=== PATIENT | female | born 1950 | race Caucasian/White ===

== ENCOUNTER 2016-08-14 11:22 | Observation (INO) | payer OTHER ==
[2016-08-14] MEDS ORDERED: NS 1,000 ML IV ONE (12:21)
--- NOTE | 2016-08-14 12:24 | EDPHY ---
H & P HPI/ROS: CHIEF COMPLAINT: Epigastric pain, vomiting HISTORY OF PRESENT ILLNESS: 65-year-old female with a history of myasthenia gravis presents with epigastric pain and vomiting. 3 nights ago she was awakened by epigastric pain which radiated to her back. The pain was waxing and waning and severe. Associated with severe nausea. Self-induced vomiting with some relief. Since then she has had intermittent episodes of similar discomfort. Associated with chills, no known fever. Onset of right lower quadrant pain last night at 7:00 p.m.. The pain has been persistent and severe since then. History of similar discomfort 10 years ago, without definite diagnosis. REVIEW OF SYSTEMS: Constitutional: No fever Eyes: No visual changes ENT: No sore throat Respiratory: No cough, no shortness of breath Cardiac: No chest pain Genitourinary: No hematuria, no dysuria Musculoskeletal: No leg pain or swelling Skin: No rash Neurological: No headache, no weakness Psychiatric: No depression Past Medical/Surgical History: Myasthenia gravis, stable, not on prednisone for over 10 years Thymectomy Social History: No recent alcohol Smoking Status: Never smoked Physical Exam: General Appearance: Alert, pleasant Eyes: Pupils equal and round, no conjunctival pallor or injection ENT, Mouth: Mucous membranes moist Neck: Normal inspection Respiratory: Lungs are clear to auscultation Cardiovascular: Regular rate and rhythm Gastrointestinal: Abdomen is soft, mild right upper quadrant tenderness Back: Normal inspection, No CVA tenderness Neurological: A&O, nonfocal, normal gait Skin: Warm and dry, no rash Extremities: Nontender, no pedal edema Psychiatric: Mood and affect normal Constitutional: Initial Vital Signs Temperature (C) 37.1 C 08/14/16 11:23 Heart Rate 74 08/14/16 11:23 Respiratory Rate 18 08/14/16 11:23 Blood Pressure 153/93 H 08/14/16 11:23 O2 Sat (%) 95 08/14/16 11:23 O2 Delivery Mode Room Air Allergies/Adverse Reactions: Sulfa (Sulfonamide Antibiotics) [Sulfa(Sulfonamide Antibiotics)] Allergy ( Verified 12/14/11 15:06) Home Medications: Medication Instructions Recorded Atorvastatin Calcium [Lipitor 10 10 mg PO DAILY 08/14/16 mg (*)] Levothyroxine [Synthroid 137 mcg 137 mcg PO DAILY06 08/14/16 (*)] Lisinopril [Zestril 5 mg (*)] 5 mg PO DAILY 08/14/16 PARoxetine HCL [Paxil] 40 mg PO DAILY 08/14/16 Medical Decision Making - Diagnostics Imaging: Right upper quadrant ultrasound read Dr. Marito Branch reveals multiple gallstones no evidence of cholecystitis or bile duct dilatation. ED Course/Re-evaluation: Ultrasound results discussed with the patient. She has persistent pain after receiving IV Dilaudid. Dr. Lujan consulted and saw the patient in the emergency department. Plan for admission and cholecystectomy this evening. Differential Diagnosis: Differential diagnosis includes though it is not limited to appendicitis, cholecystitis, diverticulitis, pyelonephritis, bowel perforation, small bowel obstruction. - Data Points Laboratory Results: Laboratory Results 08/14/16 11:50 08/14/16 11:50 08/14/16 11:50 WBC 12.81 H 10^3/uL (3.80-9.50) RBC 4.62 10^6/uL (4.18-5.33) Hgb 14.6 g/dL (12.6-16.3) Hct 42.0 % (38.0-47.0) MCV 90.9 fL (81.5-99.8) MCH 31.6 pg (27.9-34.1) MCHC 34.8 g/dL (32.4-36.7) RDW 12.1 % (11.5-15.2) Plt Count 323 10^3/uL (150-400) MPV 9.0 fL (8.7-11.7) Neut % (Auto) 78.7 H % (39.3-74.2) Lymph % (Auto) 11.9 L % (15.0-45.0) [place] % (Auto) 8.5 % (4.5-13.0) Eos % (Auto) 0.5 L % (0.6-7.6) Baso % (Auto) 0.2 L % (0.3-1.7) Nucleat RBC Rel Count 0.0 % (0.0-0.2) Absolute Neuts (auto) 10.08 H 10^3/uL (1.70-6.50) Absolute Lymphs (auto) 1.52 10^3/uL (1.00-3.00) Absolute Monos (auto) 1.09 H 10^3/uL (0.30-0.80) Absolute Eos (auto) 0.06 10^3/uL (0.03-0.40) Absolute Basos (auto) 0.03 10^3/uL (0.02-0.10) Absolute Nucleated RBC 0.00 10^3/uL (0-0.01) Immature Gran % 0.2 % (0.0-1.1) Immature Gran # 0.03 10^3/uL (0.00-0.10) Sodium 140 mEq/L (134-144) Potassium 3.9 mEq/L (3.5-5.2) Chloride 104 mEq/L (97-110) Carbon Dioxide 27 mEq/l (22-31) Anion Gap 9 mEq/L (8-16) BUN 9 mg/dL (7-23) Creatinine 0.7 mg/dL (0.6-1.0) Estimated GFR > 60 Glucose 109 H mg/dL (70-100) Calcium 9.0 mg/dL (8.5-10.4) Total Bilirubin 1.4 mg/dL (0.1-1.4) Conjugated Bilirubin 0.3 mg/dL (0.0-0.5) Unconjugated Bilirubin 1.1 mg/dL (0.0-1.1) AST 20 IU/L (14-46) ALT 34 IU/L (9-52) Alkaline Phosphatase 125 IU/L (38-126) Total Protein 6.9 g/dL (6.3-8.2) Albumin 3.7 g/dL (3.5-5.0) Lipase 94.0 IU/L (23-300) Medications Given: Discontinued Medications Hydromorphone HCl (Dilaudid) 0.5 mg IVP EDNOW ONE Stop: 08/14/16 13:15 Last Admin: 08/14/16 13:21 Dose: 0.5 mg Sodium Chloride (Ns) 1,000 mls @ 0 mls/hr IV ONCE ONE PRN Reason: Wide Open Stop: 08/14/16 12:22 Last Admin: 08/14/16 12:44 Dose: 1,000 mls Ketorolac Tromethamine (Toradol) 30 mg IVP EDNOW ONE Stop: 08/14/16 13:29 Last Admin: 08/14/16 13:53 Dose: 30 mg Departure - Departure Disposition: [facility] Inpatient Acute Clinical Impression: Biliary colic Condition: Good
[2016-08-14 12:26] LABS: % IMMATURE GRANULYOCYTES 0.2 % (0.0-1.1); ABSOLUTE IMMATURE GRANULOCYTES 0.03 10^3/uL (0.00-0.10); ADD DIFF? NO; ADD MORPH? NO; ADD SCAN? NO; ATYPICAL LYMPHOCYTE FLAG 0 (0-99); FRAGMENT RBC FLAG 0 (0-99); HEMOGLOBIN 14.6 g/dL (12.6-16.3); LEFT SHIFT FLG 0 (0-99); LIPEMIA HEMOLYSIS FLAG 90 (0-99); MEAN CELL HEMOGLOBIN 31.6 pg (27.9-34.1); MEAN CELL HEMOGLOBIN CONCENTR. 34.8 g/dL (32.4-36.7); MEAN CELL VOLUME 90.9 fL (81.5-99.8); PLATELET CLUMPS FLAG 10 (0-99); PLATELET COUNT 323 10^3/uL (150-400); RED BLOOD CELL COUNT 4.62 10^6/uL (4.18-5.33); RED CELL DISTRIBUTION WIDTH 12.1 % (11.5-15.2)
[2016-08-14 12:33] LABS: ALANINE AMINOTRANSFERASE 34 IU/L (9-52); ALBUMIN 3.7 g/dL (3.5-5.0); ALKALINE PHOSPHATASE 125 IU/L (38-126); ANION GAP 9 mEq/L (8-16); ASPARTATE AMINOTRANSFERASE 20 IU/L (14-46); BILIRUBIN,TOTAL 1.4 mg/dL (0.1-1.4); BILIRUBIN-CONJUGATED 0.3 mg/dL (0.0-0.5); BILIRUBIN-UNCONJUGATED 1.1 mg/dL (0.0-1.1); CARBON DIOXIDE 27 mEq/l (22-31); CHLORIDE 104 mEq/L (97-110); CREATININE 0.7 mg/dL (0.6-1.0); GLOMERULAR FILTRATION RATE > 60; GLUCOSE 109 mg/dL (70-100); POTASSIUM 3.9 mEq/L (3.5-5.2); SODIUM 140 mEq/L (134-144); TOTAL PROTEIN 6.9 g/dL (6.3-8.2)
--- NOTE | 2016-08-14 12:43 | CPEKG ---
Heart Rate: 63 RR Interval: 952 P-R Interval: 128 QRSD Interval: 100 QT Interval: 440 QTC Interval: 451 P Orange: 55 QRS Orange: -23 T Wave Orange: 84 EKG Severity - ABNORMAL ECG - EKG Impression: SINUS RHYTHM EKG Impression: BORDERLINE LEFT AXIS DEVIATION EKG Impression: PROBABLE POSTERIOR INFARCT Electronically Signed By: Jyoti Luke 14-Aug-2016 17:30:12
[2016-08-14] MEDS ORDERED: HYDROmorphONE/DILAUDID 1 MG/ML SYR ONE (12:57)
[2016-08-14] MEDS ORDERED: HYDROmorphONE/DILAUDID 1 MG/ML SYR IVP ONE (13:14)
[2016-08-14] MEDS ORDERED: KETOROLAC 30 MG/1 ML SDV IVP ONE (13:28)
--- NOTE | 2016-08-14 13:31 | US ---
Sonography Limited to the Right Upper Quadrant of the Abdomen CLINICAL HISTORY: 65-year-old female with right upper quadrant pain for 4 days. Rule out cholelithias is. TECHNIQUE: A curvilinear 5 MHz transducer was used to sonographically evaluate the right upper quadra nt of the abdomen. Color Doppler was used. COMPARISON STUDY: None. FINDINGS: The pancreatic contour is normal, with the caveat that the pancreatic tail is partially obs cured by overlying bowel gas.. The abdominal aorta is normal in size, and tapers normally. The visual ized IVC is normal in caliber. The hepatic vein trifurcation is normal. The main portal vein is paten t. The liver is normal in size, measuring 14.1 cm along the right midaxillary line. There is no intra or extrahepatic bile duct dilatation. The common bile duct measures 5.1 cm. The gallbladder is moder ately distended, and contains some mobile echogenic dependent foci with associated acoustic shadowing , consistent with gallstones. There is no sludge, polyp, wall thickening, pericholecystic fluid, or s onographic Corrales sign. The gallbladder wall thickness is 1.5 mm. The right kidney is normal in size, shape, and contour, with a normal renal cortical thickness, and no focal renal mass or hydronephrosi s, and measures 10.1 x 5.6 x 4.5 cm. There is no ascites or right pleural effusion. IMPRESSION: Uncomplicated cholelithiasis. Results were conveyed to Dr. Pauline Luke. A test result has been communicated to a licensed care provider and documented in the [email or web address] Critical Result system on 08/14/2016 13:25, Message ID [id number].
[2016-08-14] MEDS ORDERED: ceFAZolin 2 GM/DEXTROSE 100 ML IV ONE (14:37)
[2016-08-14] MEDS ORDERED: LR 1,000 ML IV SCH (15:00)
[2016-08-14] MEDS ORDERED: SKIN ADHESIVE (DERMABOND) 1 EACH TP ONE (15:05)
[2016-08-14] MEDS ORDERED: BUPIVACAINE/EPI 0.25% 30 ML SDV ONE (15:05)
[2016-08-14] MEDS ORDERED: MIDAZOLAM 2 MG/2 ML VIAL ONE (15:09)
[2016-08-14] MEDS ORDERED: PROPOFOL/EMULSION 500 MG/50 ML BOTTLE IV ONE (15:22)
[2016-08-14] MEDS ORDERED: fentaNYL 100 MCG/2 ML INJ ONE (15:22)
[2016-08-14] MEDS ORDERED: LIDOCAINE 2% 100 MG/5 ML SYR IVP ONE (15:23)
[2016-08-14] MEDS ORDERED: LIDOCAINE HCL 160 MG/4 ML LTA KIT TP ONE (15:25)
[2016-08-14] MEDS ORDERED: ROCURONIUM 50 MG/5 ML VIAL ONE (15:25)
--- NOTE | 2016-08-14 15:27 | GHP ---
[f rep st] PREOP HISTORY AND PHYSICAL DATE OF ADMISSION: 08/14/2016 CHIEF COMPLAINT: Abdominal pain. HISTORY OF PRESENT ILLNESS: This is an otherwise healthy 65-year-old female who presents to the [facility] department with 48 hours now of acute right upper quadrant pain with radiation to the back asso ciated with nausea and vomiting. The patient states that she had a similar episode like this 10 year s ago. She did come to the hospital at that point in time and, at that point in time, the pain was a ttributed to cardiac in nature. For the past 10 years, she has had no issues. She continues to eat fa tty foods and enjoys spicy [place] food and enjoyed this on Wednesday, after which she began to have ac [place] sharp right upper quadrant pain, 8/10 in intensity with radiation to the back. This pain persist ed over the last 48 hours. It got a little bit better Wednesday night and got worse which p rompted her presentation here today. It is associated with nausea and vomiting. The vomiting reliev ed the pain only minimally so, for a short period of time. She denies having fevers and chills. End orses persistent right upper quadrant pain and otherwise feels well. PAST MEDICAL HISTORY: Myasthenia gravis. PAST SURGICAL HISTORY: Laparoscopic tubal ligation and thymectomy, both performed remotely. REVIEW OF SYSTEMS: A full 10-point review was performed and, unless explicitly stated, is otherwise negative. CURRENT MEDICATIONS: None. ALLERGIES: Sulfa. PHYSICAL EXAMINATION: VITAL SIGNS: Temperature 36.7, blood pressure 136/70, heart rate 61, and she is 91% on room air. GENERAL: She is alert and oriented, in no acute distress. CV: She has a regul ar rate and rhythm. LUNGS: Clear to auscultation bilaterally. ABDOMEN: Obese. She is tender to pa lpation in the right upper quadrant with a positive Corrales sign. No rebound tenderness appreciated. Surgical scars consistent with previous surgical history. LABORATORY DATA: Leukocytosis to 12,000 with left shift. Chemistries are unremarkable with normal L FTs. Ultrasound shows cholelithiasis with a normal gallbladder wall, normal duct size and architectur e without any pericholecystic fluid. ASSESSMENT AND PLAN: A 65-year-old female with acute right upper quadrant pain consistent with anurag cystitis. I discussed the patient's diagnosis with her today. Given the fact that the pain has been u nrelenting and is associated with significant clinical exam and leukocytosis, I have recommended lapa roscopic cholecystectomy. After discussing the risks, benefits, and alternatives, she wishes to proc eed. She has been n.p.o. since early this morning. We will plan for OR as time permits. /[id number]/MODL
[2016-08-14] MEDS ORDERED: DEXAMETHASONE 4 MG/ML VIAL ONE (15:53)
[2016-08-14] MEDS ORDERED: ONDANSETRON 4 MG/2 ML VIAL ONE (15:53)
[2016-08-14] MEDS ORDERED: SUGAMMADEX SODIUM 200 MG/2 ML VIAL IVP ONE (16:04)
[2016-08-14] MEDS ORDERED: ONDANSETRON 4 MG/2 ML VIAL IVP PRN (16:26)
[2016-08-14] MEDS ORDERED: HYDROmorphONE/DILAUDID 1 MG/ML SYR IVP PRN (16:26)
--- NOTE | 2016-08-14 16:28 | POSTOPPROG ---
Post Op Note Date of Operation: 08/14/16 Surgeon: Luke Lujan Sales And Marketing Representative: MAKEDA Calero Anesthesiologist: Oswald Anesthesia: GET(General Endotracheal) Pre-op Diagnosis: Cholecystitis Post-op Diagnosis: acute on chronic cholecystitis Procedure: Lap anurag Findings: Adhesions, hydropic bile Inf/Abcess present in the surg proc area at time of surgery?: No EBL: Minimal Specimen(s): GAllbladder
[2016-08-14] MEDS ORDERED: D5W 1/2 NS W/ 20 KCl/L 1,000 ML IV SCH (16:30)
[2016-08-14] MEDS: OXYCODONE/APAP 5/325 TAB PO PRN (19:32)
--- NOTE | 2016-08-14 20:08 | GOP ---
[f rep st] OPERATIVE REPORT DATE OF OPERATION: 08/14/2016 SURGEON: Luke Lujan MD COMPLIANCE AUDITOR: Baljeet Calero PA-C ANESTHESIA: General endotracheal. ANESTHESIOLOGIST: Jose Akers MD PREOPERATIVE DIAGNOSIS: Acute cholecystitis. POSTOPERATIVE DIAGNOSIS: [id number] cholecystitis with hydrops of the gallbladder. PROCEDURE PERFORMED: Laparoscopic cholecystectomy. FINDINGS: The gallbladder was covered with many dense peritoneal adhesions and distended. The bile was aspirated and noted to be clear, consistent with hydrops. A critical view was obtained. SPECIMENS: Gallbladder. ESTIMATED BLOOD LOSS: 10 cc. DESCRIPTION OF PROCEDURE: The patient was greeted in the preoperative suite. Once again, risks, dedra efits, and alternatives were discussed at length. The consent was signed. She was then brought back to the operative suite, placed on the OR table in the supine position. After all anesthesia machine s, including SCDs, were on and functioning, a World Health Organization time-out was performed with p atient participation, ending with all in agreement. Antibiotics were given on-call to the operating room. General endotracheal anesthesia was then induced without incident. The patient's abdomen was then widely prepped and draped in typical sterile fashion. I entered the abdomen using the [place] ne edle in the left upper quadrant, where I insufflated with CO2 to 15 mmHg which was well tolerated by the patient. I then entered the abdomen via the umbilicus using a 10 mm Visiport. Once successfully in the abdomen, I placed 3 additional 5 mm trocars, 1 in the subxiphoid, 2 in the right upper quadra nt, all under direct visualization. Once this was done, I identified the gallbladder. There were ma ny omental and peritoneal adhesions to it. These were taken down with a combination of gentle dissec tion and electrocautery. Once these were done, the gallbladder was identified and noted to be densel y swollen. In order to facilitate retraction, it was aspirated and the bile was noted to be clear. Once aspirated, the gallbladder was then retracted superiorly. The infundibulum was grasped using a combination of blunt dissection and electrocautery. A critical view was obtained, identifying only 2 structures leading to the gallbladder. The duct was 1st clipped, 2 on the proximal, 1 on the distal , and then cut. The artery was identified posterior to this. In the same fashion, it was clipped an d cut. The gallbladder was then taken off the bed of the liver using electrocautery. Once done, it was placed in an EndoCatch bag and removed. Hemostasis was achieved in the liver bed using a combina tion of electrocautery and David hemostatic agent. Hemostasis was noted to be excellent after appli cation of this. Local anesthesia was then infiltrated into all port sites which were then removed un kartik direct visualization. Pneumoperitoneum was then evacuated in its entirety. My umbilical 10 mm p ort site was closed with an interrupted 0 Vicryl stitch in a [id number] fashion, noting excellen t fascial reapproximation. The skin was then closed with Monocryl, over which Dermabond was placed. The patient was then extubated in the operative suite and taken to the PACU in satisfactory conditio n. DRAINS: None. COUNTS: All counts were reported as correct x2. /[id number]/MODL
[2016-08-15 05:03] VITALS: O2SAT 93
[2016-08-15] MEDS: OXYCODONE/APAP 5/325 TAB PO PRN ×2 (05:03→12:02)
[2016-08-15 08:00] VITALS: BP 126/69; PULSE 58; RESP 13; TEMP 208.2
--- NOTE | 2016-08-15 08:28 | SOAPPROG ---
SOAP Progress Note Assessment/Plan: Assessment/Plan - 65yo F POD#1 s/p lap anurag - Looking good, abdomen soft and aTTP, incisions c/d/i. - Will have breakfast, plan for d/c later today. Rx in chart for Percocet 08/15/16 08:27 Subjective: Feels great Objective: Vital Signs Temp Pulse Resp BP Pulse Ox 97.9 C H 58 L 13 126/69 H 93 08/15/16 07:59 08/15/16 07:59 08/15/16 07:59 08/15/16 07:59 08/15/16 07:59 08/14/16 08/15/16 08/16/16 05:59 05:59 05:59 Intake Total 2130 Output Total 780 Balance 1350 ICD10 Worksheet Patient Problems: Problems Problem Status Diagnosed Biliary colic Acute Family history: Cardiovascular disease Active
--- NOTE | 2016-08-15 08:39 | GDS ---
[f rep st] DISCHARGE SUMMARY DISCHARGE DIAGNOSES: Acute on chronic cholecystitis. HOSPITAL COURSE: The patient was admitted from the emergency department, where she had a concerning exam and ultrasound. She was subsequently taken to the operating room later that afternoon, where joana paz underwent uneventful laparoscopic cholecystectomy. She was subsequently transferred to the general medical floor, where her diet was advanced to a regular diet, which was well tolerated. Her pain wa s well controlled on oral narcotics. Examination on the day of discharge showed that her abdomen was soft, and her incisions were clean, dry, and intact. She was subsequently discharged home in stable condition. DISCHARGE MEDICATIONS: New medication was Percocet 5/325 as needed for pain. DISPOSITION: Home. FOLLOWUP: She will follow up with me in 10-14 days for routine a postoperative check. /[id number]/MODL
== END 2016-08-15 13:21 | disposition home or self-care (01) ==
LOC: F3E 17:13
PROVIDERS: ADMIT Surgery; ATTEND Surgery
PROC: 0FT44ZZ Resection of Gallbladder, Percutaneous Endoscopic Approach (ICD-10-PCS; principal; 2016-08-14 15:18)
DX: K80.12 Calculus of gallbladder with acute and chronic cholecystitis without obstruction (principal); K82.1 Hydrops of gallbladder; Z86.69 Personal history of other diseases of the nervous system and sense organs
CPT/HCPCS: 47562; 76705; 93005; 96361; 96374; 96375; 99285; G0378; J0690; J1100; J1170; J1885; J2001; J2250; J2405; J2704; J3010

== ENCOUNTER → 2017-07-27 | Outpatient (CLI) | payer MEDICARE, OTHER | LOC: BRMIMAGING 13:15 | PROVIDERS: ATTEND Internal Medicine | DX: Z12.31 Encounter for screening mammogram for malignant neoplasm of breast (principal) ==

== ENCOUNTER → 2018-09-09 | Outpatient (CLI) | payer OTHER | LOC: BRMIMAGING 12:56 ==